=== PATIENT | female | born 1955 | race Caucasian/White ===

== ENCOUNTER 2018-07-30 12:25 | Inpatient (IN) | payer BC ==
[2018-07-30] MEDS ORDERED: HYDROcodone/Acetaminophen 5/325 mg Tablet ONE (13:21)
[2018-07-30 13:35] LABS: #Eosinphils 0.5 thou/uL (0.0-0.7); #Lymphocytes 3.1 thou/uL (1.20-3.40); #Monocytes 1.1 thou/uL (0.11-0.59); %Basophils 0.3 % (0.0-1.0); %Eosinophils 2.7 % (0.0-10.0); %Lymphocytes 18.6 % (21.0-51.0); %Monocytes 6.3 % (0.0-10.0); %Neutrophils 72.1 % (42.0-75.0); Hemoglobin 12.3 g/dL (12.0-16.0); Mean Corpuscular HGB CONC 33.6 g/dL (32.0-36.0); Mean Corpuscular Hemoglobin 29.2 pg (27.0-31.0); Mean Corpuscular Volume 86.9 fL (78.0-98.0); Mean Platelet Volume 8.3 fL (7.4-10.4); Platelet Count 254 thou/uL (130-400); RBC Distribution Width 13.5 % (11.5-14.5); White Blood Cell (WBC) Count 16.7 thou/uL (4.8-10.8)
[2018-07-30 13:54] LABS: ALT (SGPT) 15 U/L (8-55); AST (SGOT) 22 U/L (5-34); Albumin 3.3 g/dL (3.4-4.8); Alkaline Phosphatase 98 U/L (40-150); Anion Gap 16 mmol/L (10-20); BUN (Urea Nitrogen) 21 mg/dL (9.8-20.1); Bilirubin, Total 0.5 mg/dL (0.2-1.2); Calc. Creatinine Clearance 0 mL/min (70-130); Calcium 9.5 mg/dL (7.8-10.44); Carbon Dioxide 23 mmol/L (23-31); Chloride 92 mmol/L (98-107); Estimated GFR-MDRD 45; Glucose 89 mg/dL (80-115); Potassium 3.8 mmol/L (3.5-5.1); Protein, Total 7.3 g/dL (6.0-8.3); Sodium 127 mmol/L (136-145)
[2018-07-30] MEDS ORDERED: Fentanyl 100 MCG/2 ML VIAL ONE ×3 (15:18→17:19)
--- NOTE | 2018-07-30 17:17 | MRI ---
MRI LUMBAR SPINE: HISTORY: Severe back pain. History of MRSA infection. TECHNIQUE: Multiplanar, multisequence pre and post contrast enhanced MR images of the lumbar spine performed. FINDINGS: Images demonstrate multiple areas of disk space height loss involving the entire lumbar spine disk le vels. There is superior endplate edema involving the T12 vertebral body. There is contrast enhancem ent of the T12 vertebral body, diffusely. This may represent a possible T12 vertebral body infiltrat ping process, including a neoplasm. The entire vertebral body enhances. T12-L1: No significant evidence of disk herniation or neural foraminal narrowing is seen. L1: Unremarkable. L1-L2: Disc space height loss is seen. There is fluid seen in the L1-L2 disk space with broad-based posterior osteophytes. There is bilateral facet hypertrophy. This results in a moderate degree of L1-L2 central and lateral recess stenosis. There is moderate right-sided but no significant left-nancy ed neural foraminal narrowing seen. L2-L3: Disc space height loss is seen. Some edema is seen in the L2-L3 disk space. There is a broa d-based disk bulge with bilateral facet and ligamentum flavum hypertrophy, resulting in a moderate de gree of central and lateral recess stenosis. Signal abnormalities seen in the L3 vertebral body, con cerning for possible acute fracture of the L3 vertebra, with edematous changes seen. There is modera te bilateral L3-L4 neural foraminal narrowing seen due to facet hypertrophy, as well as disk osteophy te encroachment into the neural foramen. L3-L4: The intervertebral disk space demonstrates edema and some heterogeneity and signal abnormalit y in the inferior endplate of L3 and the superior endplate of L4. This may represent possible diskit is and adjacent osteomyelitis. The L3-L4 endplates also demonstrate some enhancement. L4-L5: Disk desiccation is seen. There is a broad-based central disk protrusion compressing the the charla sac and the lateral recesses, worse on the left than on the right. There is some irregularity in volving the inferior endplate of L4 with some minimal enhancement also seen. There may also be a com pression fracture and/or osteomyelitis involving the L4 vertebra. There is moderate to severe bilate ral neural foraminal narrowing due to the broad-based disk bulge, as well as the bilateral facet hype rtrophy. L5-S1: Bilateral facet hypertrophy is seen. Mild right and moderate to severe left-sided neural for aminal narrowing is seen. A small amount of edema is seen in the L5-S1 disk space. IMPRESSION: 1. Areas of signal abnormality in the T12 vertebral body and the L3 and L4 vertebral bodies. These may represent possible metastatic disease versus areas of osteomyelitis. There also appears to be mu ltilevel signal abnormalities seen in multiple lumbar disk spaces, involving L1-L2, L2-L3, L3-L4, L4- L5, and L5-S1. These may represent areas of disk degeneration versus diskitis. 2. No definite evidence of intrathecal abscess or paravertebral abscess seen. There is diffuse atro phy of the paraspinal muscles and the psoas muscles. POS: MILADIS
[2018-07-30] MEDS ORDERED: Ketorolac Tromethamine 30 MG/ML VIAL ONE (18:20)
[2018-07-30] MEDS ORDERED: Senokot S 8.6-50 MG TAB PO PRN (18:53)
[2018-07-30] MEDS ORDERED: Ondansetron PF 4 MG/2 ML Vial IVP PRN (18:53)
[2018-07-30] MEDS ORDERED: Labetalol HCl 100 MG/20 ML VIAL SLOW IVP PRN (18:53)
[2018-07-30] MEDS ORDERED: Ondansetron ODT 4 MG TAB PO PRN (18:53)
[2018-07-30] MEDS ORDERED: Ketorolac Tromethamine 30 MG/ML VIAL IVP PRN (18:53)
[2018-07-30] MEDS ORDERED: hydrALAZINE 20 MG/ML VIAL SLOW IVP PRN (18:53)
[2018-07-30] MEDS ORDERED: VANCOMYCIN IVPB PRN (19:17)
[2018-07-30] MEDS: HYDROcodone/Acetaminophen 7.5/325 mg Tablet PO PRN (20:41)
[2018-07-30] MEDS: Sodium Chloride 0.9% 1,000 ML IV SCH (21:44)
[2018-07-30] MEDS: fentaNYL 50 mcg/hour Patch TD SCH (21:46)
[2018-07-30 22:13] VITALS: BMI 36.7
[2018-07-30] MEDS ORDERED: Vancomycin HCl 1 GM in Premix Bag 1 BAG IVPB SCH (23:00)
--- NOTE | 2018-07-30 23:56 | HP ---
PRIMARY CARE PHYSICIAN: Alvarado Walters MD. INFECTIOUS DISEASE DOCTOR: Sj Miles MD CHIEF COMPLAINT: Worsening back pain. HISTORY OF PRESENT ILLNESS: This is a 63-year-old white female who was diagnosed with epidural abscess of the lumbar spine from MRSA back in March of last year. She was treated at [facility] with IV antibiotics. She also had severe pain control issues, at that time was on quite a lot of Dilaudid that kept her unresponsive most of the hospitalization. Eventually, they switched her to fentanyl patches and oral Dustin, at which point she was able to wake up more. She did eventually improve some and was transferred to [facility] for further vancomycin injections and just on Dustin at that time. The patient eventually finished her vancomycin course and was seen by Dr. Miles and switched to minocycline for 3 months. The patient reports that she continued to have some back pain, numbness and tingling down her legs, but it improved so that she was able to sit in a wheelchair and to ambulate around her room with a walker. However, over the last two days, her pain got severely worse, uncertain if they stopped her Dustin at that time as well for unknown reason. She also had a bit of upper respiratory tract infection with some fever just after [place]. This has mostly cleared at this time, but she has had some nausea and then vomited once in the last few days as well. This patient was brought to the emergency room. Here, she was found to be hypertensive and tachycardic and severe pain, but afebrile. She had blood work done showing an elevated white blood cell count and elevated CRP. Dr. Miles was contacted from the emergency room. He ordered a MRI of the entire spine, which has been done and report is pending and she is now being admitted. PAST MEDICAL HISTORY: 1. MRSA epidural spinal abscess as per HPI. 2. Hypertension. 3. Gastroesophageal reflux disease. 4. History of hyponatremia. 5. History of hyperkalemia. 6. History of chronic renal disease of unknown severity. PAST SURGICAL HISTORY: Right great toe surgery. SOCIAL HISTORY: The patient lives in a [facility]. Her next of kin works at [employer] in the Surgery Department and is her medical power of defense attorney and her identified medical decision maker. This patient does have a history of previous alcohol abuse per her previous charts, but not currently as she is in the [facility]. No known history of tobacco use. FAMILY HISTORY: No known family medical history. ALLERGIES: 1. LEVAQUIN. 2. PENICILLIN CAUSES AN ITCHY RASH. 3. MORPHINE CAUSES NAUSEA AND VOMITING. MEDICATIONS: 1. Amlodipine 10 mg daily. 2. Vitamin B12 1000 mcg daily. 3. Folic acid 1 mg daily. 4. Hydrochlorothiazide 25 mg daily. 5. Metoprolol 25 mg daily. 6. Protonix 40 mg two times a day. 7. Paroxetine 10 mg daily. REVIEW OF SYSTEMS: CONSTITUTIONAL: Fever just after [place], as per HPI, none currently. No weight changes. EYES: No double vision or blurry vision. ENT: She has had some congestion. No drainage. No sore throat. CARDIOVASCULAR: No chest pain. No palpitations or racing heart. PULMONARY: She has had some coughing, which worsens her back pain. The cough has been going on for the last 1-2 weeks. It is nonproductive and not intermittent. No wheezing or difficulty breathing. GASTROINTESTINAL: See HPI. No abdominal pain or diarrhea or constipation. She has been unable to defecate today due to severity of pain. GENITOURINARY: No dysuria or hematuria. She has been unable to void due to severity of pain today and has a very full bladder she states. MUSCULOSKELETAL: See HPI. She has severe pain in her mid back and pain down to her right hip and right knee. This right knee was actually x-rayed in the [facility] with no evidence of fracture and she had no history of fall on it recently, though she does reportedly fall regularly per her relatives. PSYCHIATRIC: No depression or anxiety. No hallucinations. PHYSICAL EXAMINATION: VITAL SIGNS: Blood pressure 184/109, pulse 107, respirations 24, O2 saturation 96% on room air, and temperature 98.6. Pain 10/10. GENERAL: This is a well-developed obese white female who is in severe pain currently. HEENT: Pupils are equal, round, and reactive to light. Bilateral cataracts. Oropharynx clear without lesions, erythema, or exudate. NECK: Supple. No lymphadenopathy. No thyroid nodules or enlargement. No JVD. HEART: Regular rate and rhythm. No murmurs, rubs, or gallops. LUNGS: Clear to auscultation bilaterally. No wheezes, crackles, or rhonchi. ABDOMEN: Soft, nontender to palpation, though she does have urge said to be of high pressure over her bladder. No masses palpable. Normoactive bowel sounds. No hepatosplenomegaly. EXTREMITIES: No clubbing, cyanosis, or edema. She has decreased strength in her lower extremities and numbness, which is ever since her original infection. She has severe pain in the low back with any movement of her lower extremities, so I am not able to do a real good strength exam on her legs. She has normal strength and reflexes in her arms. She has normal reflexes in her legs. NEUROLOGIC: See above. She does have normal reflexes throughout and no facial droop and the numbness in the bilateral lower extremities. PSYCHIATRIC: She is alert and oriented x3. LABORATORY DATA: White blood cell count 16 with 72% neutrophils, normal hemoglobin and hematocrit. Normal platelets. Complete metabolic panel is notable for sodium of 127, chloride of 92, a BUN of 21, a creatinine of 1.2, and an albumin of 3.3. Her C-reactive protein is elevated at 7.7, and her lactic acid was normal at 1.4. MRI of the lumbar spine report is back showing areas of signal abnormality in the T12 vertebral body and the L3 and L4 vertebral bodies. These may represent possible metastatic disease versus areas of osteomyelitis. Also multilevel signal abnormality seen in multiple lumbar disk spaces. This may represent areas of disk degeneration versus diskitis. No definitive intrathecal abscess or paravertebral abscesses seen. ASSESSMENT: 1. Spinal methicillin-resistant Staphylococcus aureus infection, now with evidence of osteomyelitis. We will continue vancomycin and have Pharmacy dose for therapeutic level. Dr. Miles is being consulted for pain control. We will put the patient on fentanyl patch 50 mcg and then give p.r.n. Dustin 7.5 two tablets every 6 hours as needed. 2. Uncontrolled hypertension is likely secondary to uncontrolled pain. We will resume her home blood pressure medications and give her p.r.n. medications as needed. 3. GI prophylaxis. We will continue patient's Protonix. She also has gastroesophageal reflux disease. 4. Code status I did discuss with the patient. She is a full code. Should she be incapacitated, her medical decision maker would be Brenda Homeyer. Job ID: [id number]
[2018-07-31] MEDS: HYDROcodone/Acetaminophen 7.5/325 mg Tablet PO PRN (02:59)
[2018-07-31 07:01] LABS: #Eosinphils 0.5 thou/uL (0.0-0.7); #Lymphocytes 1.9 thou/uL (1.20-3.40); #Monocytes 0.6 thou/uL (0.11-0.59); #Neutrophils 10.4 thou/uL (1.40-6.50); %Basophils 0.2 % (0.0-1.0); %Eosinophils 3.8 % (0.0-10.0); %Monocytes 4.4 % (0.0-10.0); %Neutrophils 77.7 % (42.0-75.0); Hemoglobin 12.1 g/dL (12.0-16.0); Mean Corpuscular HGB CONC 34.6 g/dL (32.0-36.0); Mean Corpuscular Hemoglobin 29.7 pg (27.0-31.0); Mean Corpuscular Volume 85.9 fL (78.0-98.0); Mean Platelet Volume 8.7 fL (7.4-10.4); Platelet Count 230 thou/uL (130-400); RBC Distribution Width 13.7 % (11.5-14.5); Red Blood Cell (RBC) Count 4.07 mill/uL (4.20-5.40); White Blood Cell (WBC) Count 13.4 thou/uL (4.8-10.8)
[2018-07-31 07:16] LABS: Anion Gap 17 mmol/L (10-20); BUN (Urea Nitrogen) 18 mg/dL (9.8-20.1); Calc. Creatinine Clearance 82 mL/min (70-130); Calcium 8.8 mg/dL (7.8-10.44); Carbon Dioxide 20 mmol/L (23-31); Chloride 90 mmol/L (98-107); Estimated GFR-MDRD 48; Glucose 76 mg/dL (80-115); Potassium 4.3 mmol/L (3.5-5.1); Sodium 123 mmol/L (136-145)
[2018-07-31] MEDS: Hydrochlorothiazide 25 MG TAB PO SCH (08:53)
[2018-07-31] MEDS ORDERED: Amlodipine 10 MG TAB PO SCH (09:00)
[2018-07-31] MEDS ORDERED: Prevnar 13-Val Conj/PF 0.5 ML SYRINGE IM ONE (09:00)
[2018-07-31] MEDS ORDERED: PARoxetine 20 MG TAB PO SCH (09:00)
--- NOTE | 2018-07-31 15:09 | PDOC.PN ---
- Subjective Encounter Start Date: 07/31/18 Encounter Start Time: 14:58 Patient seen and examined, no new issues or complaints, no family at bedside, all questions answered. - Objective Resuscitation Status - Order Detail: 07/30/18 17:23 Resuscitation Status Routine Resuscitation Status: FULL: Full Resuscitation Discussed with: Patient Vital Signs & Weight: Vital Signs (12 hours) Temp Pulse Pulse Resp BP BP Pulse Ox 07/31/18 11:36 97.4 F L 102 H 20 102/71 91 L 07/31/18 10:29 112 H 07/31/18 08:53 95 127/86 07/31/18 08:52 95 07/31/18 08:46 92 L 07/31/18 07:57 98.5 F 113 H 20 127/86 92 L 07/31/18 03:28 98.0 F 111 H 18 144/93 H 94 L Pulse Ox 07/31/18 11:36 07/31/18 10:29 95 07/31/18 08:53 07/31/18 08:52 07/31/18 08:46 07/31/18 07:57 07/31/18 03:28 Weight Weight 227 lb 8 oz I&O: 07/30/18 07/31/18 08/01/18 06:59 06:59 06:59 Intake Total 1061 Balance 1061 Result Diagrams: 07/31/18 06:10 07/31/18 06:10 Phys Exam - Physical Examination Constitutional: NAD HEENT: PERRLA, moist MMs Neck: no nodes, no JVD, supple, full ROM Respiratory: no wheezing, no rales, no rhonchi Cardiovascular: RRR, no significant murmur, no rub Gastrointestinal: soft, non-tender, no distention Musculoskeletal: no edema, pulses present Dx/Plan (1) MRSA spinal osteo Status: Acute (2) Sepsis Code(s): A41.9 - SEPSIS, UNSPECIFIED ORGANISM Status: Acute (3) Hypertension Code(s): I10 - ESSENTIAL (PRIMARY) HYPERTENSION Status: Acute (4) GERD (gastroesophageal reflux disease) Code(s): K21.9 - GASTRO-ESOPHAGEAL REFLUX DISEASE WITHOUT ESOPHAGITIS Status: Acute - Plan * cont abx * ID consultation pending * no changes in plan of care for now * case and plan d/w patient at length, she understands and agrees with this plan.
[2018-07-31] MEDS: Sodium Chloride 0.9% 1,000 ML IV SCH (15:10)
[2018-07-31] MEDS ORDERED: Vancomycin HCl 1.5 GM in Sodium Chloride 0.9% 250 ML 300 ML IVPB SCH (21:00)
--- NOTE | 2018-07-31 22:38 | CON ---
DATE OF CONSULTATION: 07/31/2018 REASON FOR CONSULTATION: Pain in the lower back and changes in labs concerning for recrudescence of back infection. HISTORY OF PRESENT ILLNESS: A 63-year-old with history of hypertension, stage 3 renal insufficiency, and esophageal stricture as well as alcoholism, who was admitted with bacteremia and back pain to [facility] on April 26, 2018. She also had a left proximal humerus fracture from previous fall, which had been managed conservatively. Evaluation determined that she had MRSA bacteremia, and MRI of the lumbosacral spine demonstrated LS discitis with osteomyelitis and multiple areas of pyomyositis of the paravertebral musculature. The patient had a PICC line inserted and was treated I believe for about 56 days with IV vancomycin in the outpatient setting. I was able to follow her in the clinic and her C-reactive protein had returned to pretty much normal levels. We then transitioned her to oral doxycycline. She presents at this time with worsening pain in the lumbosacral spine area. Initially, it was felt that this was due to the patient having run out of her analgesic prescription medications. She was brought to the emergency room and because of elevation in C-reactive protein compared with prior values as well as elevated white cell count, the patient was admitted for workup. According to the patient's own recollection, she had a recent episode of respiratory tract infection just a few days ago with a negative influenza test. She has quite a bit of cognitive impairment with memory difficulty. Right now, she denies any headaches. No sore throat, odynophagia, or dysphagia. No cough, sputum production, or chest pain. She did not have tenderness in the lumbosacral spine area when I was examining her. No abdominal pain; urinating without difficulty and no genitourinary symptoms. She noticed that she is not as mobile in the lower extremities as she had been before, but I am not sure if this is an issue with recall rather than a true new development. PAST MEDICAL HISTORY: Alcoholism, hypertension, GERD, chronic renal insufficiency, MRSA spinal infection; pyomyositis, treated with extensive IV antimicrobial therapy after admission to [facility]. SOCIAL HISTORY: group home resident, history of alcoholism, but that has subsided, never smoker. FAMILY HISTORY: Noncontributory. ALLERGIES: LEVOFLOXACIN, PENICILLIN WITH RASH; MORPHINE, NAUSEA AND VOMITING. CURRENT MEDICATIONS: Include, 1. Bascom. 2. Norvasc. 3. Duragesic. 4. Toradol. 5. Metoprolol. 6. Pantoprazole. 7. Paroxetine. 8. Prednisone. 9. Vancomycin. PHYSICAL EXAMINATION: VITAL SIGNS: T-max 98.5, blood pressure 102/71, pulse 102, respirations 20, O2 saturation 91% to 94%. SKIN: An area of erythema and maceration in the intergluteal region. The patient is voiding in the diaper. Peripheral IV access. HEENT: No lymphadenopathy. Ocular movements conjugate. Oral cavity with no remarkable findings. NECK: Supple. No jugular venous distention. LUNGS: Symmetric. Clear breath sounds. S1, S2. Regular rate without murmurs. No S3 or S4. ABDOMEN: Soft. Not distended or tender. BACK: No back tenderness. : No bladder distention. MUSCULOSKELETAL: No joint inflammatory activity. She is able to lift her knees from the bed, but cannot flex more than about 45 degrees. Plantar responses are flexor. Pulses 1+ in dorsalis pedis. NEUROLOGIC: She is awake, recognized me, otherwise her recall capabilities are quite limited. She has a hard time of sequence of events. LABORATORY DATA: White cell count was 16.7, now 13.4; hemoglobin 12, platelets 254 with 72% neutrophils. Sodium 127, creatinine 1.2, now 1.14. Liver profile normal. CRP 7.79, albumin 3.3. MRI repeat study was done with contrast, it showed disk space height loss involving the entire lumbar spine, superior endplate edema in the T12 vertebral body. There is contrast enhancement of the T12 vertebral body diffusely. The previous areas of pyomyositis have completely resolved. ASSESSMENT: 1. Alcoholism. 2. Methicillin-resistant Staphylococcus aureus bacteremia with lumbosacral spine infection, treated for a protracted period of time with improvement/resolution of inflammatory changes. 3. Recrudescence of lumbosacral pain with elevation in CRP and leukocytosis. 4. Recent episode of upper respiratory tract symptoms, which were managed in the assisted. Reportedly, had negative influenza test. Differential diagnoses include respiratory tract infection, which has led to the elevation in CRP versus recrudescence of the spinal infection. We will switch her back to minocycline or doxycycline and discontinue IV vancomycin since there has been marked improvement in the x-ray findings. She had a chest x-ray and respiratory virus PCR panel in view of respiratory symptoms in the assisted. Follow up the course of her lumbosacral spine symptoms. Job ID: [id number]
[2018-08-01] MEDS: Sodium Chloride 0.9% 1,000 ML IV SCH (04:03)
[2018-08-01] MEDS: HYDROcodone/Acetaminophen 7.5/325 mg Tablet PO PRN ×2 (04:56→10:59)
[2018-08-01] MEDS: Hydrochlorothiazide 25 MG TAB PO SCH (08:03)
[2018-08-01] MEDS: Amlodipine 10 MG TAB PO SCH (08:04)
[2018-08-01] MEDS: Metoprolol Tartrate 25 MG TAB PO SCH (08:04)
[2018-08-01] MEDS: predniSONE 20 MG TAB PO SCH (08:05)
[2018-08-01] MEDS: PARoxetine 20 MG TAB PO SCH (08:07)
--- NOTE | 2018-08-01 13:27 | PDOC.PN ---
- Subjective Encounter Start Date: 08/01/18 Encounter Start Time: 13:15 Patient seen and examined, no new issues or complaints, all questions answered. - Objective Resuscitation Status - Order Detail: 07/30/18 17:23 Resuscitation Status Routine Resuscitation Status: FULL: Full Resuscitation Discussed with: Patient Vital Signs & Weight: Vital Signs (12 hours) Temp Pulse Resp BP Pulse Ox 08/01/18 08:04 80 08/01/18 08:00 92 L 08/01/18 07:07 98.0 F 80 20 128/83 92 L 08/01/18 04:00 97.9 F 86 16 166/85 H 93 L Weight Weight 227 lb 8 oz I&O: 07/31/18 08/01/18 08/02/18 06:59 06:59 06:59 Intake Total 1061 3280 480 Balance 1061 3280 480 Result Diagrams: 07/31/18 06:10 07/31/18 06:10 Phys Exam - Physical Examination Constitutional: NAD HEENT: PERRLA, moist MMs, sclera anicteric Neck: no nodes, no JVD, supple Respiratory: no wheezing, no rales, no rhonchi Cardiovascular: RRR, no significant murmur, no rub Gastrointestinal: soft, non-tender, no distention Musculoskeletal: pulses present, edema present (trace) Dx/Plan (1) MRSA spinal osteo Status: Acute (2) Sepsis Code(s): A41.9 - SEPSIS, UNSPECIFIED ORGANISM Status: Acute (3) Hypertension Code(s): I10 - ESSENTIAL (PRIMARY) HYPERTENSION Status: Acute (4) GERD (gastroesophageal reflux disease) Code(s): K21.9 - GASTRO-ESOPHAGEAL REFLUX DISEASE WITHOUT ESOPHAGITIS Status: Acute - Plan * cont abx, ID following * prognosis guarded * for now will cont with IV abx, will discuss local intermodal truck driver goals of care in detail as length if they patient does not have any improvement the current plan of care * case and plan d/w patient at length she understood and agreed with this plan.
--- NOTE | 2018-08-01 15:09 | PRG ---
DATE OF SERVICE: SUBJECTIVE: Ms. Hanson is not having much pain in the low lumbosacral spine area. Little bit confused still. No dyspnea. No abdominal pain. OBJECTIVE: VITAL SIGNS: She has been afebrile. BP 140/80, pulse 85. LUNGS: With symmetric air entry. HEART: S1, S2. Regular rate. ABDOMEN: Soft. LABORATORY DATA: White cell count 13.4, hemoglobin 12, and platelets 230. Creatinine 1.14. Two sets of blood cultures, thus far no growth. Respiratory virus PCR panel negative. ASSESSMENT AND DISCUSSION: 1. Alcoholism history, methicillin-resistant Staphylococcus aureus bacteremia with lumbosacral spine infection, treated for protracted period of time with resolution of inflammatory changes. 2. Recrudescence of lumbosacral pain with elevation in CRP and leukocytosis. 3. Recent episode of upper respiratory tract infection. In view of the improvement noted in the MRI, we will continue with the oral doxycycline or minocycline. We will hold any other antimicrobials for the indication prescribed originally and follow up inflammatory markers. It is possible that the recent decompensation is secondary to an alternate process, for example a respiratory tract infection secondary to a viral syndrome. We will submit a urinalysis which has not yet been done. Job ID: [id number]
[2018-08-01 15:46] LABS: Bilirubin Negative (Negative); Blood, Urine Trace (Negative); Clarity CLEAR (Clear); Glucose, Urine (Dipstick) Negative (Negative); Leukocyte Negative (Negative); Nitrite Negative (Negative); Protein, Urine (Dipstick) Negative (Neg-Trace); Specific Gravity, Urine 1.008 (1.002-1.036); Urobilinogen 0.2 mg/dL (0.2-1.0); pH, Urine 5.5 (5.0-9.0)
[2018-08-01 15:49] LABS: Bacteria/HPF None Seen HPF (None Seen); Hyaline Casts/LPF 0-3 HYALINE CAST LPF (0-3 Hyaline); Pathc Cast-AUWi Flag 0.58 (0-2.49); Squamous Epithelial 0-3 HPF (0-3); WBC/HPF 0-3 HPF (0-3)
[2018-08-02] MEDS: Sodium Chloride 0.9% 1,000 ML IV SCH ×3 (00:18→17:04)
[2018-08-02] MEDS: PARoxetine 20 MG TAB PO SCH (08:15)
[2018-08-02] MEDS: predniSONE 20 MG TAB PO SCH (08:15)
[2018-08-02] MEDS: Metoprolol Tartrate 25 MG TAB PO SCH (08:15)
[2018-08-02] MEDS: Amlodipine 10 MG TAB PO SCH (08:16)
[2018-08-02] MEDS: Hydrochlorothiazide 25 MG TAB PO SCH (08:16)
--- NOTE | 2018-08-02 13:50 | PDOC.PN ---
- Subjective Encounter Start Date: 08/02/18 Encounter Start Time: 13:49 Patient seen and examined, no new issues or complaints, no famliy at bedside, all questions answered. - Objective Resuscitation Status - Order Detail: 07/30/18 17:23 Resuscitation Status Routine Resuscitation Status: FULL: Full Resuscitation Discussed with: Patient Vital Signs & Weight: Vital Signs (12 hours) Temp Pulse Resp BP BP Pulse Ox 08/02/18 08:54 93 L 08/02/18 08:16 82 131/80 08/02/18 08:11 97.8 F 82 14 131/80 93 L 08/02/18 04:48 98.2 F 85 18 145/78 H 93 L Weight Weight 227 lb 8 oz I&O: 08/01/18 08/02/18 08/03/18 06:59 06:59 06:59 Intake Total 3280 720 Balance 3280 720 Result Diagrams: 07/31/18 06:10 07/31/18 06:10 Phys Exam - Physical Examination Constitutional: NAD HEENT: PERRLA, moist MMs, sclera anicteric, TM's clear Neck: no nodes, no JVD, supple, full ROM Respiratory: no wheezing, no rales, no rhonchi Cardiovascular: RRR, no significant murmur, no rub Gastrointestinal: soft, non-tender, no distention Musculoskeletal: pulses present, edema present (trace) Dx/Plan (1) MRSA spinal osteo Status: Acute (2) Sepsis Code(s): A41.9 - SEPSIS, UNSPECIFIED ORGANISM Status: Acute (3) Hypertension Code(s): I10 - ESSENTIAL (PRIMARY) HYPERTENSION Status: Acute (4) GERD (gastroesophageal reflux disease) Code(s): K21.9 - GASTRO-ESOPHAGEAL REFLUX DISEASE WITHOUT ESOPHAGITIS Status: Acute - Plan * cont abx for now * no changes in plan of care * work up pending for alternative source of infection
--- NOTE | 2018-08-02 16:14 | PRG ---
DATE OF SERVICE: 08/02/2018 SUBJECTIVE: Feeling better, very alert and awake and oriented, clear change compared with admission. OBJECTIVE: VITAL SIGNS: She has been afebrile throughout the course of her hospital stay. O2 sats 93%, which are stable. Other vital signs are not remarkable. GENERAL: Awake, alert, oriented. HEENT: Ocular movements conjugate. LUNGS: Symmetric air entry. HEART: S1, S2. Regular rate. ABDOMEN: A very prominent panniculus. EXTREMITIES: Able to move extremities. Not much pain in the lower back at this time. LABORATORY DATA: White cell count has not been repeated. We will recheck a CRP and WBC count. ASSESSMENT AND DISCUSSION: History of alcoholism with MRSA bacteremia and lumbosacral spine infection. Treated for protracted period of time. Marked improvement in MRI findings and now with recrudescence of CRP elevation, some respiratory symptoms and some delirium with marked improvement after admission. Urinalysis was fairly unremarkable. Follow up inflammatory markers. Continue suppressive Minocycline for about 3 months Job ID: [id number] [facility]
--- NOTE | 2018-08-02 18:12 | RAD ---
FRONTAL VIEW CHEST: 08/02/18 INDICATION: Cough and delirium. FINDINGS: There is added density of the left lung base with obscuration of the left hemidiaphragm. Right lung i s grossly clear. Cardiac silhouette is mildly enlarged. No significant vascular congestion. There is osseous degenerative change and vascular calcification. IMPRESSION: Left basilar density that may relate to pleural fluid with adjacent atelectasis and/or pneumonia. Prominent cardiac silhouette. Recommend continued followup to resolution with two view chest series. POS: GEOVANNI
[2018-08-02] MEDS: fentaNYL 50 mcg/hour Patch TD SCH (20:13)
[2018-08-03 07:15] LABS: #Eosinphils 0.1 thou/uL (0.0-0.7); #Lymphocytes 2.5 thou/uL (1.20-3.40); #Monocytes 0.8 thou/uL (0.11-0.59); #Neutrophils 5.9 thou/uL (1.40-6.50); %Basophils 0.3 % (0.0-1.0); %Eosinophils 1.6 % (0.0-10.0); %Lymphocytes 26.6 % (21.0-51.0); %Monocytes 8.4 % (0.0-10.0); %Neutrophils 63.1 % (42.0-75.0); Hemoglobin 9.6 g/dL (12.0-16.0); Mean Corpuscular HGB CONC 33.6 g/dL (32.0-36.0); Mean Corpuscular Hemoglobin 29.3 pg (27.0-31.0); Mean Corpuscular Volume 87.2 fL (78.0-98.0); Mean Platelet Volume 8.8 fL (7.4-10.4); Platelet Count 200 thou/uL (130-400); RBC Distribution Width 13.4 % (11.5-14.5); Red Blood Cell (RBC) Count 3.27 mill/uL (4.20-5.40); White Blood Cell (WBC) Count 9.4 thou/uL (4.8-10.8)
[2018-08-03 07:35] LABS: Anion Gap 14 mmol/L (10-20); BUN (Urea Nitrogen) 32 mg/dL (9.8-20.1); Calc. Creatinine Clearance 67 mL/min (70-130); Calcium 8.7 mg/dL (7.8-10.44); Carbon Dioxide 22 mmol/L (23-31); Chloride 99 mmol/L (98-107); Estimated GFR-MDRD 38; Glucose 87 mg/dL (80-115); Potassium 4.2 mmol/L (3.5-5.1); Sodium 131 mmol/L (136-145)
[2018-08-03] MEDS: Sodium Chloride 0.9% 1,000 ML IV SCH (07:42)
[2018-08-03] MEDS: Metoprolol Tartrate 25 MG TAB PO SCH (07:43)
[2018-08-03] MEDS: predniSONE 20 MG TAB PO SCH (07:43)
[2018-08-03] MEDS: PARoxetine 20 MG TAB PO SCH (07:43)
[2018-08-03] MEDS: Hydrochlorothiazide 25 MG TAB PO SCH (07:43)
[2018-08-03] MEDS: Amlodipine 10 MG TAB PO SCH (07:44)
[2018-08-03] MEDS: HYDROcodone/Acetaminophen 7.5/325 mg Tablet PO PRN (07:51)
--- NOTE | 2018-08-03 11:09 | PDOC.PN ---
- Subjective Encounter Start Date: 08/03/18 Encounter Start Time: 11:08 Patient seen and examined, no new issues or complaints. - Objective Resuscitation Status - Order Detail: 07/30/18 17:23 Resuscitation Status Routine Resuscitation Status: FULL: Full Resuscitation Discussed with: Patient Vital Signs & Weight: Vital Signs (12 hours) Temp Pulse Resp BP BP Pulse Ox 08/03/18 07:44 77 151/83 H 08/03/18 07:30 94 L 08/03/18 07:09 97.6 F 77 20 151/83 H 94 L Weight Weight 227 lb 8 oz I&O: 08/02/18 08/03/18 08/04/18 06:59 06:59 06:59 Intake Total 720 2780 Output Total 500 Balance 720 2280 Result Diagrams: 08/03/18 06:34 08/03/18 06:34 Phys Exam - Physical Examination Constitutional: NAD HEENT: PERRLA, moist MMs, sclera anicteric Neck: no nodes, no JVD, supple Respiratory: no wheezing, no rales, no rhonchi Cardiovascular: RRR, no significant murmur, no rub Gastrointestinal: soft, non-tender, no distention, positive bowel sounds Musculoskeletal: pulses present, edema present (trace) Dx/Plan (1) MRSA spinal osteo Status: Acute (2) Sepsis Code(s): A41.9 - SEPSIS, UNSPECIFIED ORGANISM Status: Acute (3) Hypertension Code(s): I10 - ESSENTIAL (PRIMARY) HYPERTENSION Status: Acute (4) GERD (gastroesophageal reflux disease) Code(s): K21.9 - GASTRO-ESOPHAGEAL REFLUX DISEASE WITHOUT ESOPHAGITIS Status: Acute - Plan * cont abx for now * will await senior care abx recommendation from ID * patient clinically appears stable/improving * no changes in plan of care for now
--- NOTE | 2018-08-03 16:58 | ULT ---
BILATERAL LOWER EXTREMITY VENOUS ULTRASOUND WITH DOPPLER DUPLEX: CPT: 38745 ICD-10-PCS: B54D INDICATIONS: Bilateral lower extremity edema and mobility impairment. TECHNIQUE: Color-flow Doppler, spectral wave-form analysis of pulsed Doppler, and will-scale imaging with compre ssion and augmentation were used to evaluate the bilateral common femoral, femoral, popliteal, continuing education specialist ior tibial, and superficial femoral veins, and the proximal portions of the profunda femoral and grea ter saphenous veins. FINDINGS: There is appropriate compressibility and flow within the imaged deep venous system of each lower extr emity without evidence of DVT. IMPRESSION: No deep venous thrombosis identified within the visualized bilateral lower extremities. POS: [facility]
[2018-08-04] MEDS: Sodium Chloride 0.9% 1,000 ML IV SCH ×2 (02:00→18:27)
[2018-08-04] MEDS: predniSONE 20 MG TAB PO SCH (08:10)
[2018-08-04] MEDS: Hydrochlorothiazide 25 MG TAB PO SCH (08:11)
[2018-08-04] MEDS: Metoprolol Tartrate 25 MG TAB PO SCH (08:11)
[2018-08-04] MEDS: Amlodipine 10 MG TAB PO SCH (08:11)
[2018-08-04] MEDS: PARoxetine 20 MG TAB PO SCH (08:12)
[2018-08-04] MEDS: HYDROcodone/Acetaminophen 7.5/325 mg Tablet PO PRN (09:58)
--- NOTE | 2018-08-04 10:41 | PQF ---
DATE: 08-04-18 ATTN: DR. MANISHA YIP Please exercise your independent, professional judgment in responding to the clarification form. Clinical indicators are provided on the bottom of this form for your review Please check appropriate box(s): [ ] Hyponatremia please specify etiology, if known [ ] Hyponatremia due to SIADH (Syndrome of Inappropriate Secretion of Antidiuretic Hormone) [ ] Other diagnosis [ ] Unable to determine In addition, please specify: Present on Admission (POA): [ ] Yes [ ] No [ ] Unable to determine CLINICAL INDICATORS - SIGNS / SYMPTOMS / LABS ER: HX OF HYPONATREMIA, GERD, HYPERKALEMIA LAB SODIUM: 07-30-18: 127 07-31-18: 123 08-03-18: 131 RISK FACTORS: ER: HX OF HYPONATREMIA, HX HYPERKALEMIA, HTN H&P: HX OF HTN, HX HYPONATREMIA, HYPERKALEMIA, HX OF CHRONIC RENAL DISEASE OF UNKNOWN SEVERITY TREATMENTS: ER: NS IVF SERIES OF LABS (This form is maintained as a part of the permanent medical record) 2014 [employer] All Rights Reserved RAMOS [email or web address] Office: [phone] [facility]
--- NOTE | 2018-08-04 11:01 | PQF ---
DATE: 08-04-18 ATTN: DR. MANISHA YIP Please exercise your independent, professional judgment in responding to the clarification form. Clinical indicators are provided on the bottom of this form for your review Please check appropriate box(s): [ ] Encephalopathy: Type: [ ] Acute [ ] Subacute [ ] Chronic Etiology: [ ] Hypertensive [ ] Metabolic [ ] Toxic [ ] Septic [ ] Transient Alteration of Awareness [ ] Other diagnosis [ ] Unable to determine In addition, please specify: Present on Admission (POA): [ ] Yes [ ] No [ ] Unable to determine For continuity of documentation, please document condition throughout progress notes and discharge summary. Thank You. CLINICAL INDICATORS - SIGNS / SYMPTOMS / LABS CONSULT NOTE DR. TRAN 07-31-18: SHE IS AWAKE, RECOGNIZED ME, OTHERWISE HER RECAL CAPABILITIES QUITE LIMITED, SHE HAS A HARD TIME OF SEQUENCE OF EVENTS. CONSULT NOTE DR. TRAN 08-02-18: SOME RESPIRATORY SYMPTOMS AND SOME DELIRIUM WITH MARKED IMPROVEMENT AFTER ADMISSION. PN DR. GARCIA 07-31-18: ACUTE SEPSIS RISK FACTORS: PN DR. GARCIA 07-31-18: ACUTE SEPSIS H&P: HX OF CHRONIC RENAL DISEASE, HX OF PREVIOUS ALCOHOL ABUSE, HX HYPONATREMIA, HYPERKALEMIA TREATMENTS: MAR: IVF ER: VANCOMYCIN IV, IVF, (This form is maintained as a part of the permanent medical record) 2014 [employer]. All Rights Reserved RAMOS [email or web address] Office: [phone] [facility]
--- NOTE | 2018-08-04 11:11 | PQF ---
DATE: 08-04-18 ATTN: DR. MANISHA YIP Please exercise your independent, professional judgment in responding to the clarification form. Clinical indicators are provided on the bottom of this form for your review Diagnosis: ACUTE SEPSIS Present on Admission (POA): [ ] Yes [ ] No [ ] Unable to determine Coding guidelines require hospitals to identify whether a diagnosis was present on admission (POA) or not. To accurately assign the appropriate POA indicator, this information must be clearly documented within the medical record. CLINICAL INDICATORS - SIGNS / SYMPTOMS / LABS ER DX: SPINAL INFECTION H&P: SPINAL METHICILLIN-RESISTANT STAPHYLOCOCCUS AUREUS INFECTION, NOW WITH EVIDENCE OF OSTEOMYELITIS PN DR. GARCIA 07-31-18: ACUTE SEPSIS WBC: 07-30-18: 16.7 07-31-18: 13.4 CREACTIVE PROTEIN: 07-30-18: 7.79 08-02-18: 8.88 PULSE ER: 106, 108, 107, 105, 107, 111, 115 RR ER: 24, 22, 24 RISK FACTORS: ER DX: SPINAL INFECTION H&P: HX OF EPIDURAL ABSCESS OF LUMBAR SPINE WITH MRSA, NOW WITH EVIDENCE OF OSTEOMYELITICS TREATMENT: ER: VANCOMYCIN IV, NS IVF (This form is maintained as a part of the permanent medical record) 2014 [employer] All Rights Reserved RAMOS [email or web address] Office: [phone] RADHA
--- NOTE | 2018-08-04 14:05 | PRG ---
DATE OF SERVICE: 08/04/2018 SUBJECTIVE: The patient is feeling better. She is much more alert and oriented. Little bit of cough. No chest pain. No abdominal pain. OBJECTIVE: VITAL SIGNS: Temperature max 97.6, blood pressure 190/92, pulse 77, O2 saturations 92%. LUNGS: Few crackles in scattered areas in right and left lung mahmood. HEART: S1 and S2. Regular rate. ABDOMEN: Soft, not distended, quite prominent panniculus. Moves extremities equally. Little bit of low back pain. LABORATORY DATA: White cell count down to 9.4, hemoglobin 9.6, and platelets 200. Sodium 131, creatinine 1.41. Microbiology, negative blood cultures. Respiratory virus PCR negative and we had a venogram, which showed no evidence of deep vein thrombosis and a chest x-ray with left basilar density with adjacent atelectasis or pneumonia. ASSESSMENT AND DISCUSSION: History of alcoholism, Methicillin-resistant Staphylococcus aureus bacteremia, lumbosacral spine infection, treated for protracted period of time with marked improvement in the MRI findings, some recrudescence of low back pain and now is with CRP elevation, respiratory symptoms, and abnormal chest x-ray. She has been started on minocycline and that may have helped with the community-acquired pneumonia. 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 Follow up in the clinic. Job ID: [id number]
--- NOTE | 2018-08-04 14:14 | PDOC.PN ---
- Subjective Encounter Start Date: 08/04/18 Encounter Start Time: 09:20 Pt seen for followup re: pneumonia. Denies chest pain or shortness of breath. - Objective Resuscitation Status - Order Detail: 07/30/18 17:23 Resuscitation Status Routine Resuscitation Status: FULL: Full Resuscitation Discussed with: Mary Beth SHERIDAN Reviewed: Yes Vital Signs & Weight: Vital Signs (12 hours) Temp Pulse Resp BP BP Pulse Ox 08/04/18 08:21 97.7 F 77 20 197/92 H 93 L 08/04/18 08:11 77 197/92 H Weight Weight 227 lb 8 oz I&O: 08/03/18 08/04/18 08/05/18 06:59 06:59 06:59 Intake Total 2780 2795 Output Total 500 1200 Balance 2280 1595 Result Diagrams: 08/03/18 06:34 08/03/18 06:34 Additional Labs: labs reviewed by me Phys Exam - Physical Examination Constitutional: NAD HEENT: moist MMs Neck: supple Respiratory: clear to auscultation bilateral Cardiovascular: RRR Gastrointestinal: soft Neurological: moves all 4 limbs Psychiatric: normal affect Dx/Plan (1) CAP (community acquired pneumonia) Code(s): J18.9 - PNEUMONIA, UNSPECIFIED ORGANISM Status: Acute Comment: continue minocycline (2) Acute metabolic encephalopathy Code(s): G93.41 - METABOLIC ENCEPHALOPATHY Status: Acute Comment: Improved, present on admission (3) Hyponatremia Code(s): E87.1 - HYPO-OSMOLALITY AND HYPONATREMIA Status: Acute Comment: present on admission, etiology unclear (4) Chronic osteomyelitis of lumbar spine Code(s): M86.68 - OTHER CHRONIC OSTEOMYELITIS, OTHER SITE Status: Chronic Comment: appreciate ID service input (5) Acute sepsis Code(s): A41.9 - SEPSIS, UNSPECIFIED ORGANISM Status: Resolved Comment: present on admission - Plan * . Review of Systems - Review of Systems Respiratory: Cough, Dry. negative: Shortness of Breath, Hemoptysis, SOB with Excertion, Pleuritic Pain, Sputum, Wheezing Cardiovascular: negative: chest pain, palpitations, orthopnea, paroxysmal nocturnal dyspnea, edema, light headedness Musculoskeletal: Back Pain - Medications/Allergies Allergies/Adverse Reactions: Allergies Allergy/AdvReac Type Severity Reaction Status Date / Time levofloxacin [From Levaquin] Allergy Verified 07/30/18 21:52 morphine Allergy Verified 07/30/18 21:52 Penicillins Allergy Verified 07/30/18 21:52 Medications: Current Medications Hydrocodone Bitart/Acetaminophen ([place] 7.5/325) 2 tab PO Q4H PRN PRN Reason: Severe Pain (7-10) Last Admin: 08/04/18 09:58 Dose: 2 tab Amlodipine Besylate (Norvasc) 10 mg PO DAILY [facility] Last Admin: 08/04/18 08:11 Dose: 10 mg Fentanyl (Duragesic) 50 mcg TD Q3D [facility] Last Admin: 08/02/18 20:13 Dose: 50 mcg Hydralazine HCl (Apresoline) 10 mg SLOW IVP Q4H PRN PRN Reason: SBP > 180, DBP > 110 Hydrochlorothiazide (Hydrochlorothiazide) 25 mg PO DAILY [facility] Last Admin: 08/04/18 08:11 Dose: 25 mg Sodium Chloride (Normal Saline 0.9%) 1,000 mls @ 60 mls/hr IV .[id number] [facility] Last Admin: 08/04/18 02:00 Dose: 1,000 mls Labetalol HCl (Normodyne) 10 mg SLOW IVP Q4H PRN PRN Reason: SBP Greater Than 180 Metoprolol Tartrate (Lopressor) 25 mg PO DAILY [facility] Last Admin: 08/04/18 08:11 Dose: 25 mg Minocycline HCl (Minocycline Hcl) 100 mg PO BID [facility] Last Admin: 08/04/18 09:58 Dose: 100 mg Ondansetron HCl (Zofran Odt) 4 mg PO Q6H PRN PRN Reason: Nausea/Vomiting Ondansetron HCl (Zofran) 4 mg IVP Q6H PRN PRN Reason: Nausea/Vomiting Pantoprazole Sodium (Protonix) 40 mg PO BID [facility] Last Admin: 08/04/18 08:11 Dose: 40 mg Paroxetine HCl (Paxil) 10 mg PO DAILY [facility] Last Admin: 08/04/18 08:12 Dose: 10 mg Prednisone (Prednisone) 20 mg PO DAILY [facility] Last Admin: 08/04/18 08:10 Dose: 20 mg Senna/Docusate Sodium (Senokot S) 2 tab PO BIDPRN PRN PRN Reason: Constipation Last Admin: 08/03/18 12:18 Dose: 2 tab
[2018-08-05] MEDS: HYDROcodone/Acetaminophen 7.5/325 mg Tablet PO PRN ×3 (10:20→20:46)
[2018-08-05] MEDS: Amlodipine 10 MG TAB PO SCH (10:22)
[2018-08-05] MEDS: Hydrochlorothiazide 25 MG TAB PO SCH (10:22)
[2018-08-05] MEDS: Metoprolol Tartrate 25 MG TAB PO SCH (10:22)
[2018-08-05] MEDS: predniSONE 20 MG TAB PO SCH (10:22)
[2018-08-05] MEDS: PARoxetine 20 MG TAB PO SCH (10:23)
[2018-08-05] MEDS: Sodium Chloride 0.9% 1,000 ML IV SCH (10:31)
[2018-08-05] MEDS ORDERED: Cyclobenzaprine 10 MG TAB PO PRN (12:43)
[2018-08-05] MEDS ORDERED: Lidocaine 5% Patch TD SCH (13:30)
--- NOTE | 2018-08-05 14:06 | PDOC.PN ---
- Subjective Encounter Start Date: 08/05/18 Encounter Start Time: 10:00 Pt seen for followup re; pneumonia. c/o lower back pain, right leg pain. - Objective Resuscitation Status - Order Detail: 07/30/18 17:23 Resuscitation Status Routine Resuscitation Status: FULL: Full Resuscitation Discussed with: Patient Vital Signs & Weight: Vital Signs (12 hours) Temp Pulse Resp BP Pulse Ox 08/05/18 10:22 70 08/05/18 08:00 94 L 08/05/18 07:14 97.7 F 70 18 178/82 H 94 L Weight Weight 227 lb 8 oz I&O: 08/04/18 08/05/18 08/06/18 06:59 06:59 06:59 Intake Total 2795 480 Output Total 1200 Balance 1595 480 Result Diagrams: 08/03/18 06:34 08/03/18 06:34 Phys Exam - Physical Examination Obese HEENT: moist MMs Neck: supple Respiratory: clear to auscultation bilateral Cardiovascular: RRR Gastrointestinal: soft Musculoskeletal: no edema Neurological: moves all 4 limbs Psychiatric: normal affect Dx/Plan (1) CAP (community acquired pneumonia) Code(s): J18.9 - PNEUMONIA, UNSPECIFIED ORGANISM Status: Acute Comment: on minocycline (2) Acute metabolic encephalopathy Code(s): G93.41 - METABOLIC ENCEPHALOPATHY Status: Acute Comment: Improved (3) Hyponatremia Code(s): E87.1 - HYPO-OSMOLALITY AND HYPONATREMIA Status: Acute Comment: Sodium improved to 131 (4) Chronic osteomyelitis of lumbar spine Code(s): M86.68 - OTHER CHRONIC OSTEOMYELITIS, OTHER SITE Status: Chronic Comment: appreciate ID service input (5) Acute sepsis Code(s): A41.9 - SEPSIS, UNSPECIFIED ORGANISM Status: Resolved - Plan PT/OT, out of bed/ambulate * . Consult pain service Review of Systems - Review of Systems Cardiovascular: negative: chest pain, palpitations, orthopnea, paroxysmal nocturnal dyspnea, edema, light headedness Gastrointestinal: negative: Nausea, Vomiting, Abdominal Pain, Diarrhea, Constipation, Melena, Hematochezia Musculoskeletal: Back Pain, Leg Pain - Medications/Allergies Allergies/Adverse Reactions: Allergies Allergy/AdvReac Type Severity Reaction Status Date / Time levofloxacin [From Levaquin] Allergy Verified 07/30/18 21:52 morphine Allergy Verified 07/30/18 21:52 Penicillins Allergy Verified 07/30/18 21:52 Medications: Current Medications Hydrocodone Bitart/Acetaminophen ([place] 7.5/325) 2 tab PO Q4H PRN PRN Reason: Severe Pain (7-10) Last Admin: 08/05/18 10:20 Dose: 2 tab Amlodipine Besylate (Norvasc) 10 mg PO DAILY [facility] Last Admin: 08/05/18 10:22 Dose: 10 mg Cyclobenzaprine HCl (Flexeril) 10 mg PO TID PRN PRN Reason: Muscle Spasm Last Admin: 08/05/18 13:15 Dose: 10 mg Fentanyl (Duragesic) 50 mcg TD Q3D [facility] Last Admin: 08/02/18 20:13 Dose: 50 mcg Hydralazine HCl (Apresoline) 10 mg SLOW IVP Q4H PRN PRN Reason: SBP > 180, DBP > 110 Hydrochlorothiazide (Hydrochlorothiazide) 25 mg PO DAILY [facility] Last Admin: 08/05/18 10:22 Dose: 25 mg Sodium Chloride (Normal Saline 0.9%) 1,000 mls @ 60 mls/hr IV .[id number] [facility] Last Admin: 08/05/18 10:31 Dose: 1,000 mls Labetalol HCl (Normodyne) 10 mg SLOW IVP Q4H PRN PRN Reason: SBP Greater Than 180 Lidocaine (Lidoderm 5% Patch) 1 patch TD DAILY [facility] Lidocaine (Lidoderm 5% Patch) 1 patch TD 1330 [facility] Stop: 08/05/18 21:00 Metoprolol Tartrate (Lopressor) 25 mg PO DAILY [facility] Last Admin: 08/05/18 10:22 Dose: 25 mg Minocycline HCl (Minocycline Hcl) 100 mg PO BID [facility] Last Admin: 08/05/18 10:24 Dose: 100 mg Miscellaneous Medication (Lidocaine Patch Removal) 1 each TOP 2100 [facility] Ondansetron HCl (Zofran Odt) 4 mg PO Q6H PRN PRN Reason: Nausea/Vomiting Ondansetron HCl (Zofran) 4 mg IVP Q6H PRN PRN Reason: Nausea/Vomiting Pantoprazole Sodium (Protonix) 40 mg PO BID [facility] Last Admin: 08/05/18 10:22 Dose: 40 mg Paroxetine HCl (Paxil) 10 mg PO DAILY [facility] Last Admin: 08/05/18 10:23 Dose: 10 mg Prednisone (Prednisone) 20 mg PO DAILY [facility] Last Admin: 08/05/18 10:22 Dose: 20 mg Senna/Docusate Sodium (Senokot S) 2 tab PO BIDPRN PRN PRN Reason: Constipation Last Admin: 08/03/18 12:18 Dose: 2 tab
[2018-08-05] MEDS: fentaNYL 50 mcg/hour Patch TD SCH (21:27)
[2018-08-06] MEDS: Sodium Chloride 0.9% 1,000 ML IV SCH (03:34)
[2018-08-06] MEDS: predniSONE 20 MG TAB PO SCH (08:26)
[2018-08-06] MEDS: PARoxetine 20 MG TAB PO SCH (08:27)
[2018-08-06] MEDS: Metoprolol Tartrate 25 MG TAB PO SCH (08:27)
[2018-08-06] MEDS: Amlodipine 10 MG TAB PO SCH (08:28)
[2018-08-06] MEDS: Hydrochlorothiazide 25 MG TAB PO SCH (08:28)
[2018-08-06] MEDS ORDERED: Lidocaine 5% Patch TD SCH (09:00)
--- NOTE | 2018-08-06 12:03 | CON ---
DATE OF CONSULTATION: 08/05/2018 REASON FOR CONSULTATION: Pain management. HISTORY OF PRESENT ILLNESS: The patient is a 63-year-old female with history of epidural abscess of lumbar spine with MRSA bacteremia diagnosed in March 2018, who has been followed by Dr. Miles of Infectious Disease. She was managed with IV antibiotics therapy at the [facility] back in March, and transferred to [facility] for IV antibiotic therapy and rehab back in March, where it appeared she was somewhat improving. Recent readmission back to [facility] on 07/30/2018 after the patient experienced increase in lumbar pain and lower extremity pain and tingling. Labs indicated elevated CRP and leukocytosis on admission, again Infectious Disease has been following the patient for her history of previous lumbar spinal MRSA bacteremia infection. It has not been determined the cause of the new onset of the pain that has lead to this admission. It appears to be some questions of whether respiratory infection versus viral infection is responsible. The patient's pain has been fairly controlled in the past on her fentanyl Duragesic 50 mcg q.72 hours with hydrocodone 7.5/325 mg tablets 1 to 2 q.6 hours for breakthrough pain. She has reported this has been effective in the past without any adverse reactions until earlier in the day when the staff reports her pain became severe, uncontrolled for her and her current medication regimen was not effective for her pain. Topical Lidoderm and Flexeril were added earlier for her increased pain. The plan is to discharge the patient to assisted for continued care and antibiotic therapy; however, her pain seems to be limiting that as of recently, thus Pain Management has been consulted for further recommendations. PAST MEDICAL HISTORY: Includes MRSA with epidural abscess of the lumbar spine diagnosed back in March 2018, hypertension, gastroesophageal reflux disease, history of hyponatremia, history of hypokalemia, history of alcoholism, chronic renal insufficiency stage 3. PAST SURGICAL HISTORY: Include surgery on her right great toe, gallbladder. SOCIAL HISTORY: Includes the patient reports prior to living in her assisted. She was totally independent at home, lives along, , has a history of smoking, which she has quit, history of alcohol use socially. She reports to me today, most recently, she has been a resident of the nursing facility. FAMILY HISTORY: Father in MVA. Mother still alive, noncontributory. ALLERGIES: INCLUDE LEVOFLOXACIN, PENICILLIN WITH RASH, MORPHINE. MEDICATIONS: Reviewed per patient's MAR. For pain, she is currently getting her fentanyl Duragesic 50 mcg q.72 hours with hydrocodone 7.5/325 mg tablets 1 to 2 q.6 hours p.r.n. for breakthrough pain. Flexeril 10 mg as well as Lidoderm recently added earlier today. REVIEW OF SYSTEMS: The patient reports bilateral low back pain with radiating pain down bilateral lower extremities posterior from the back all the way to bilateral lower extremities and feet. She reports her pain is 10/10 currently. All other systems are negative as per HPI. PHYSICAL EXAMINATION: VITAL SIGNS: Blood pressure 178/82, temperature 97.7, heart rate 70, respirations 18. GENERAL: The patient is lying in bed, her eyes are closed. She is actually difficult to arouse due to sedation, no distress, appears to be sleeping deep and comfortably. I have asked her multiple times to follow commands as she is drowsy; however, she does follow some simple commands. She does report to me her pain is 10/10 at this restful state. CARDIOVASCULAR: Regular rate and rhythm. No peripheral edema. Peripheral pulses are present. RESPIRATORY: Bilateral chest expansion is symmetric. Breath sounds clear to auscultation. ABDOMEN: Soft, nontender, nondistended. Bowel sounds x4. MUSCULOSKELETAL: Able to arouse the patient enough to have her move bilateral upper extremities and lower extremities against gravity in the bed in supine position. No pain or neuro deficits with range of motion. She has bilateral positive dorsiflexion and plantarflexion with no reproduced radicular pain. Unable to logroll for vertebral body palpation exam due to the patient's sedation. NEUROLOGICAL: She is alert with verbal stimulation. She seems to be confused at times. She had answered my questions. ASSESSMENT AND PLAN: A 63-year-old female with diagnosis of MRSA bacteremia with lumbosacral spine infection, who is currently being followed by Infectious Disease with recent exacerbation of episodic pain possibly related to upper respiratory tract infection with continued pain that is limiting her functional status and mobility. Her current pain medications include fentanyl, [place] for breakthrough pain, muscle relaxant, cyclobenzaprine, and topical Lidoderm patch. On assessment this afternoon, while she endorses a pain level of 10/10, she is difficult to assess due to sedation with recently getting medicated with her breakthrough pain medications in addition to her Duragesic. At this time, from Pain Management standpoint, I would not recommend any adjustments to opioids due to the sedative effect evaluated today. If her pain continues to be problematic and limits progress and functional activities and mobility, consider increasing her [place] to 10/325 mg for breakthrough pain as well as adding neuropathic medication, gabapentin 300 mg p.o. Q HS, titrating up to t.i.d. if tolerating. She is obviously not a candidate for interventional pain management procedure at this time and likely will not become one in the future. We will follow as needed. Thank you for this consultation. Job ID: [id number] [facility]ITAL[facility]anca
[2018-08-06 17:29] VITALS: BP 120/74; TEMP 97.7
[2018-08-06] MEDS ORDERED: Lidocaine Patch Removal 1 EACH TOP SCH (21:00)
--- NOTE | 2018-08-06 22:44 | DIS ---
DATE OF ADMISSION: 07/30/2018 DATE OF DISCHARGE: 08/06/2018 PRIMARY CARE PROVIDER: Alvarado Walters MD DISCHARGE DIAGNOSES: 1. Community-acquired pneumonia. 2. Acute metabolic encephalopathy. 3. Hyponatremia. 4. Acute sepsis. 5. History of mild depression. CONDITION OF PATIENT ON THE DAY OF DISCHARGE: Stable. I assessed Ms. Hanson on the day of discharge. She reports that pain has improved. Vital signs are stable. S1 and S2 are heard, regular. Lungs are clear to auscultation bilaterally. DISCHARGE MEDICATIONS: 1. [place] 5/325 mg every 6 hours as needed, home dose. 2. Amlodipine 10 mg daily. 3. Vitamin B12 of 1000 mcg daily. 4. Folic acid 1 mg daily. 5. Slow-Mag 128 mg daily. 6. Lopressor 25 mg daily. 7. Multivitamins 1 tablet daily. 8. Pantoprazole 40 mg 2 times a day. 9. Paroxetine 10 mg daily. 10. Prednisone 20 mg daily. 11. Thiamine 100 mg daily. 12. Lidocaine 5% patches, 2 patches every 24 hours. 13. Minocycline 100 mg 2 times a day for 90 days. 14. Flexeril 10 mg 3 times a day as needed. CONSULTATIONS DURING THIS HOSPITALIZATION: 1. Infectious Diseases, Sj Miles MD. 2. Pain Management service, CHRIS Pennington. HOSPITAL COURSE: Ms. Hanson is a pleasant 63-year-old lady, who was admitted to [facility] on July 30, 2018, for uncontrolled hypertension, likely secondary to uncontrolled pain as well as acute sepsis. Please refer to Dr. Rabago's history and physical note dated July 30, 2018, for further details. She was seen by Infectious Disease Service. Lumbar spine MRI on July 30 showed areas of signal abnormality in the T12 vertebral body and the L3 and L4 vertebral bodies, representing possible metastatic disease versus areas of osteomyelitis. There was no definite evidence of intrathecal abscess or paravertebral abscess. Chest x-ray done on August 02 showed was suggestive of left basal pneumonia. She improved with minocycline. Infectious Diseases Service felt that her MRI findings represent an improvement. Vancomycin was discontinued and she was continued on minocycline. She needs to continue minocycline for 3 more months. She also had respiratory virus PCR panel that was unremarkable. Because of ongoing pain, she was seen by Pain Management Service. Their concern was sedative effects of opioids. However, if pain is not improving, then recommend increasing [place] dose as well as neuropathic medications such as gabapentin 300 mg before sleep and titrating up to t.i.d. if tolerating. She was not a candidate for interventional pain management procedures at that time. She was also hyponatremic at the time of admission with a sodium level of 127. This improved to 131 by August 03, 2018. Ms. Hanson is being discharged back to [facility], from where she was admitted to this hospital. Many thanks for allowing me to participate in your patient's care. Please feel free to contact me with any questions or concerns. DISCHARGE DESTINATION: [facility]. TIME SPENT: Total amount of time spent coordinating this discharge: 32 minutes. Job ID: [id number]
== END 2018-08-06 19:18 | DRG 871 ==
LOC: ERS 12:25 → EDSEX 12:25 → T4-B 16:00 → T4-A 21:14
PROVIDERS: ADMIT Internal Medicine; ATTEND Internal Medicine
DX: A41.9 Sepsis, unspecified organism (principal); J18.9 Pneumonia, unspecified organism; G93.41 Metabolic encephalopathy; E87.1 Hypo-osmolality and hyponatremia; M46.26 Osteomyelitis of vertebra, lumbar region; I12.9 Hypertensive chronic kidney disease with stage 1 through stage 4 chronic kidney disease, or unspecified chronic kidney disease; K21.9 Gastro-esophageal reflux disease without esophagitis; B95.62 Methicillin resistant Staphylococcus aureus infection as the cause of diseases classified elsewhere; N18.3 Chronic kidney disease, stage 3 (moderate); F10.20 Alcohol dependence, uncomplicated; J06.9 Acute upper respiratory infection, unspecified; Z88.5 Allergy status to narcotic agent; Z88.0 Allergy status to penicillin
CPT/HCPCS: 36415; 71045; 72158; 80048; 80053; 81003; 81015; 83605; 85025; 85652; 86140; 87040; 87633; 90471; 90670; 93970; 96365; 96366; 96375; 96376; G0009; J0360; J1885; J3010; J3370; J7050; J7506